=== PATIENT | female | born 1975 | race Caucasian/White ===

== ENCOUNTER 2016-07-09 00:32 | Emergency (ER) | payer OTHER ==
[2016-07-09] MEDS ORDERED: METOCLOPRAMIDE 5 MG TAB PO STA (00:54)
--- NOTE | 2016-07-09 00:56 | ED ---
ENT HPI - General Chief complaint: ENT Stated complaint: FB Throat Time Seen by Provider: 07/09/16 00:42 Source: patient, family, RN notes reviewed Mode of arrival: ambulatory Limitations: no limitations - History of Present Illness Initial comments: Patient is a 40-year-old female presents to the emergency room for evaluation of foreign body in throat. Patient states that she was eating a late dinner and took a bite out of a hard piece of cantaloupe. Patient states she went to swallow and it would not go down her throat. Patient states the piece of cantaloupe was stuck in her throat for about 45 minutes. Patient states she jumped up and down and tried to swallow other foods with no relief of symptoms. Patient states she finally decided to come to the emergency room. Patient states as soon as she sat down in the room and put on her gown on, the foreign body sensation went away and she was able to fully swallow the piece of cantaloupe. Patient states her throat does feel slightly sore. Patient denies any more trouble swallowing. Patient denies shortness of breath. Patient denies chest pain. - Related Data Home Medications Medication Instructions Recorded Confirmed Citalopram Hydrobromide [CeleXA] 40 mg PO DAILY 07/09/16 07/09/16 Previous Rx's Medication Instructions Recorded Metoclopramide HCl [Reglan] 5 mg PO BID PRN #12 tablet 07/09/16 Allergies Allergy/AdvReac Type Severity Reaction Status Date / Time Sulfa (Sulfonamide Allergy Rash/Hives Verified 07/09/16 00:37 Antibiotics) Review of Systems ROS Statement: Those systems with pertinent positive or pertinent negative responses have been documented in the HPI. ROS Other: All systems not noted in ROS Statement are negative. Past Medical History Past Medical History: No Reported History History of Any Multi-Drug Resistant Organisms: None Reported Past Surgical History: No Surgical Hx Reported Past Psychological History: Anxiety Smoking Status: Never smoker Past Alcohol Use History: None Reported Past Drug Use History: None Reported General Exam - General Exam Comments Initial Comments: Sitting in exam room, no acute distress. Limitations: no limitations General appearance: alert, in no apparent distress Head exam: Present: atraumatic, normocephalic, normal inspection Eye exam: Present: normal appearance ENT exam: Present: normal exam, normal oropharynx Neck exam: Present: normal inspection, full ROM. Absent: tenderness, lymphadenopathy Respiratory exam: Present: normal lung sounds bilaterally. Absent: respiratory distress Cardiovascular Exam: Present: regular rate, normal rhythm, normal heart sounds Extremities exam: Present: normal inspection Back exam: Present: normal inspection Neurological exam: Present: alert, oriented X3, CN II-XII intact, normal gait Psychiatric exam: Present: normal affect, normal mood Skin exam: Present: warm, dry, intact, normal color. Absent: rash Course Vital Signs 07/09/16 00:33 Temperature 98.5 F Pulse Rate 79 Respiratory 20 Rate Blood Pressure 139/69 O2 Sat by Pulse 100 Oximetry Medical Decision Making - Medical Decision Making Patient is a 40-year-old female presents to the emergency room for evaluation of foreign body in throat. Patient states she was finally able to fully swallow foreign body as soon as she sat down in exam room. Patient was given Reglan andstates she is feeling better. Will send patient home with Reglan and advised her to drink cold fluids to help with irritation in throat. Patient denies any trouble swallowing. Patient states she is feeling better and would like to be discharged home. Return parameters discussed. Case discussed with Dr. Ojeda. Disposition Clinical Impression: Foreign body in throat Disposition: HOME SELF-CARE Condition: Good Instructions: Esophageal Foreign Body (ED) Additional Instructions: Take Reglan as needed for discomfort. Please follow up with primary care provider in 1-2 days. If any new symptom arises or symptoms worsen, return to ER as soon as possible. Prescriptions: Metoclopramide HCl [Reglan] 5 mg PO BID PRN #12 tablet PRN Reason: Pain Referrals: Nonstaff,Physician [Primary Care Provider] - 1-2 days Time of Disposition: 01:46
[2016-07-09 01:56] VITALS: BP 133/69; PULSE 76; RESP 18; TEMP 98
== END 2016-07-09 01:56 | disposition home or self-care (01) ==
LOC: EC 00:32
DX: T18.128A Food in esophagus causing other injury, initial encounter (principal); X58.XXXA Exposure to other specified factors, initial encounter; Z88.2 Allergy status to sulfonamides; F41.9 Anxiety disorder, unspecified; Z79.899 Other long term (current) drug therapy
CPT/HCPCS: 99283